=== PATIENT | male | born 1985 | race African-American/Black ===

== ENCOUNTER 2016-07-18 21:58 | Emergency (ER) | payer SELFPAY ==
[~2016-07-18] VITALS: Ht 185.4 cm; Wt 90.7 kg
[2016-07-18] MEDS ORDERED: LORAZEPAM INJ 2 MG/ML VIAL IV ONE (22:00)
[2016-07-18] MEDS ORDERED: IV NS 0.9% 1,000 ML BAG IV ONE (22:00)
[2016-07-18] MEDS ORDERED: IV SET PRIMARY 1 EA INFUS.SET MC ONE (22:09)
[2016-07-18] MEDS ORDERED: LORAZEPAM INJ 2 MG/ML VIAL ONE (22:09)
[2016-07-18] MEDS ORDERED: IV NS 0.9% 1,000 ML ONE (22:09)
[2016-07-19 06:03] VITALS: BP 128/71
== END 2016-07-19 05:45 | disposition home or self-care (01) ==
LOC: ER 22:01
DX: F15.10 Other stimulant abuse, uncomplicated (principal); R73.09 Other abnormal glucose
CPT/HCPCS: 82962; 96361; 96374; 99284; A4606; J2060; J7030; Z7610